=== PATIENT | female | born 1980 | race African-American/Black ===

== ENCOUNTER → 2020-09-08 | Outpatient (CLI) | payer OTHER ==
[~2020-09-08] MED LIST: ADVAIR 250/28 DISKUS IH; PERCOCET 325 MG1 TA2 PO; PROVENTIL0.09 MG/A1 IH; [UNRECOGNIZED DRUG - OTHER] PO
== END ==
LOC: COL.RAD
DX: R10.9 Unspecified abdominal pain (principal)
CPT/HCPCS: A9537; J2805

== ENCOUNTER → 2021-03-30 | Outpatient (CLI) | payer OTHER | LOC: COL.RAD 10:30 | DX: S76.312D Strain of muscle, fascia and tendon of the posterior muscle group at thigh level, left thigh, subsequent encounter (principal); Z98.890 Other specified postprocedural states ==

== ENCOUNTER 2021-05-13 10:47 | Emergency (ER) | payer OTHER ==
[~2021-05-13] VITALS: Ht 170.2 cm; Wt 83.2 kg
[~2021-05-13 10:47] MED LIST changes: -PERCOCET 325 MG1 TA2 PO
[2021-05-13 11:02] VITALS: TEMP 98.3
[2021-05-13 11:58] LABS: BASO % 0.7 % (0.0-2.0); EOS # 0.1 K/mm3 (0.0-0.7); EOS % 1.5 % (0-4.0); GRAN % 51.3 % (42.2-75.2); HEMOGLOBIN 11.8 g/dl (12.5-16.0); LYMPH # 2.2 K/mm3 (1.2-3.4); LYMPH % 37.4 % (20.0-51.0); MEAN CELL VOLUME 91 fl (80.0-100.0); MEAN CORPUSCULAR HEMOGLOBIN 30 pg (27.0-31.0); MEAN CORPUSCULAR HGB CONC 33 g/dl (33.0-37.0); MEAN PLATELET VOLUME 9.6 fl (7.4-10.4); MONO # 0.5 K/mm3 (0.1-0.6); MONO % 8.9 % (1.7-9.3); PLATELET COUNT 316 K/mm3 (130-400); RED BLOOD COUNT 3.98 M/mm3 (4.10-5.30); REDCELL DISTRIBUTION WIDTH-CV 13.7 % (11.5-14.5)
[2021-05-13 12:13] LABS: ALBUMIN 3.5 gm/dL (3.5-5.0); BILIRUBIN,TOTAL 0.3 mg/dL (0.2-1.2); CALCIUM 8.9 mg/dL (8.4-10.2); TOTAL PROTEIN 6.8 gm/dL (6.2-8.1)
[2021-05-13] MEDS ORDERED: PERCOCET 325 MG1 TA2 PO (13:00)
[2021-05-13 13:12] VITALS: BP 126/84; PULSE 79
== END 2021-05-13 13:12 | disposition home or self-care (01) ==
LOC: COL.ER 10:47
PROVIDERS: Personal Emergency Response Attendant
DX: L73.9 Follicular disorder, unspecified (principal); G89.29 Other chronic pain; R10.32 Left lower quadrant pain
CPT/HCPCS: J2270; J2405; Q9967